=== PATIENT | male | born 1995 | race Caucasian/White ===

== ENCOUNTER 2018-03-30 05:54 | Day surgery (SDC) | payer BC ==
[2018-03-30] MEDS: LIDOCAINE 1% (MPF) 30 ML INJ
[2018-03-30] MEDS: BUPIVACAINE 0.25% (MPF) 30 ML INJ
[2018-03-30] MEDS ORDERED: GELATIN SIZE 100 SPONGE (06:42)
[2018-03-30 06:46] LABS: INR 0.92; PROTIME 12.4 Sec (11.9-14.9)
[2018-03-30 06:52] LABS: PARTIAL THROMBOPLASTIN TIME 22.3 Sec (25.0-35.0)
[2018-03-30 06:57] LABS: POTASSIUM 5.5 mmol/L (3.5-5.1)
[2018-03-30] MEDS ORDERED: MIDAZOLAM 1 MG/ML 2 ML INJ (07:32)
[2018-03-30] MEDS ORDERED: PROPOFOL 20 ML (07:32)
[2018-03-30] MEDS ORDERED: FENTAnyl 50 MCG/ML VIAL (07:33)
[2018-03-30] MEDS ORDERED: ROPIVACAINE 0.5 % 30 ML VIAL (07:33)
[2018-03-30] MEDS ORDERED: LIDOCAINE 1% (MDV) 20 ML INJ (07:33)
[2018-03-30] MEDS ORDERED: CEFAZOLIN 1 GM INJ (07:57)
[2018-03-30] MEDS: HEPARIN 1000 UNITS/ML 10 ML INJ (08:30)
[2018-03-30] MEDS: THROMBIN 5000 UNIT VIAL (08:30)
[2018-03-30] MEDS ORDERED: EPHEDrine 50 MG INJ (08:42)
[2018-03-30] MEDS ORDERED: ONDANSETRON 4 MG INJ (08:52)
[2018-03-30] MEDS ORDERED: CINACALCET 30 MG TAB PO (09:00)
[2018-03-30 09:22] LABS: ALANINE AMINOTRANSFERASE 14 IU/L (13-69); ALBUMIN 5.3 g/dl (3.3-4.9); ALKALINE PHOSPHATASE 68 IU/L (42-121); ANION GAP 27 (8-16); ASPARTATE AMINO TRANSFERASE 26 IU/L (15-46); BILIRUBIN,INDIRECT 0.3 mg/dl (0-1.1); BILIRUBIN,TOTAL 0.3 mg/dl (0.2-1.3); BLOOD UREA NITROGEN 46 mg/dl (7-20); CALCIUM 9.8 mg/dl (8.4-10.2); CARBON DIOXIDE 22 mmol/L (21-31); CHLORIDE 100 mmol/L (97-110); CREATININE 10.18 mg/dl (0.61-1.24); GLUCOSE 88 mg/dl (70-220); POTASSIUM 5.5 mmol/L (3.5-5.1); SODIUM 143 mmol/L (135-144); TOTAL PROTEIN 8.6 g/dl (6.1-8.1)
[2018-03-30] MEDS: AMLODIPINE 10 MG TAB PO (10:04)
[2018-03-30] MEDS: LISINOPRIL 20 MG TAB PO (10:05)
[2018-03-30] MEDS ORDERED: CALCIUM ACETATE 667 MG CAP PO (12:00)
== END 2018-03-30 10:52 | disposition home or self-care (01) ==
LOC: SDS 05:54
DX: I12.0 Hypertensive chronic kidney disease with stage 5 chronic kidney disease or end stage renal disease (principal); N18.6 End stage renal disease
CPT/HCPCS: 36821; 71045; 80053; 84132; 85610; 85730; 93005